=== PATIENT | male | born 1970 | race African-American/Black ===

== ENCOUNTER 2024-07-18 01:19 | Emergency (ER) | payer MEDICAID ==
[~2024-07-18] VITALS: Ht 193 cm; Wt 156.4 kg
[2024-07-18 02:46] VITALS: BP 174/102; PULSE 71; RESP 16; TEMP 99.2; O2SAT 99
== END 2024-07-18 03:30 | disposition left against medical advice (07) ==
LOC: EMS 01:19
DX: R11.0 Nausea (principal); Z53.21 Procedure and treatment not carried out due to patient leaving prior to being seen by health care provider